=== PATIENT | male | born 1990 | race Caucasian/White ===

== ENCOUNTER 2020-06-16 06:07 | Outpatient (REF) | payer OTHER, SELFPAY ==
[2020-06-16 12:16] LABS: TSH reflex Free T4 2.02 uIU/mL (0.32-4.0)
[2020-06-16 12:17] LABS: Alanine Aminotransferase 41 U/L (0-40); Albumin Level 4.4 g/dL (3.5-5.0); Alkaline Phosphatase 55 U/L (39-117); Anion Gap 17 (12-20); Aspartate Amino Transferase 28 U/L (5-37); Bilirubin Total 0.5 mg/dL (0.0-1.0); Blood Urea Nitrogen 16 mg/dL (9-16); Calcium 9.4 mg/dL (8.4-10.2); Carbon Dioxide 24 mmol/L (22-29); Chloride 102 mmol/L (96-108); Cholesterol 173 mg/dL; Estimated Glomerular Filt Rate > 60; Glucose Fasting 110 mg/dL (60-99); HDL Cholesterol 34 mg/dL; Potassium 4.4 mmol/L (3.3-5.1); Sodium 139 mmol/L (135-145); Total Protein 7.2 g/dL (6.5-8.0)
[2020-06-16 12:24] LABS: LDL Cholesterol Calculated 89 mg/dl; Triglycerides 250 mg/dL
== END 2020-06-16 06:08 | disposition home or self-care (01) ==
LOC: HO.HMGCLDS 06:07
PROVIDERS: PCP Nurse Practitioner Family; Visit Provider Nurse Practitioner Family
DX: E66.9 Obesity, unspecified (principal)
CPT/HCPCS: 36415; 80053; 80061; 84443

== ENCOUNTER 2022-01-29 08:34 | Outpatient (REF) | payer OTHER, SELFPAY ==
--- NOTE | ~2022-01-29 | XR_ITS ---
EXAMINATION: XR KNEE, RIGHT CLINICAL INFORMATION: Sprain of right knee COMPARISON: None TECHNIQUE: Four views of the right knee. FINDINGS: There has been previous ACL repair with postoperative changes noted. Small chondrocalcinosis seen. No osteochondral lesions. No evidence for acute bony fracture or dislocation. Spurring changes of the lateral femoral condyle seen. There is evidence of a suprapatellar effusion. Patellar spurring seen. XR/XR knee RT 4V IMPRESSION: No acute fracture or dislocation. Postoperative changes. Degenerative changes.
== END 2022-01-29 08:35 | disposition home or self-care (01) ==
LOC: HO.HMGCX 08:34
PROVIDERS: PCP Nurse Practitioner Family; Visit Provider Internal Medicine
DX: S83.91XA Sprain of unspecified site of right knee, initial encounter (principal)
CPT/HCPCS: 73564

== ENCOUNTER 2022-06-29 06:14 | Outpatient (REF) | payer OTHER, SELFPAY ==
[2022-06-29 12:43] LABS: Appearance Urine Turbid; Color Urine Yellow; Glucose Urine UA Negative (Negative); Leukocyte Esterase Urine Negative (Negative); Nitrite Urine Negative (Negative); Specific Gravity - Urine 1.025 (1.005-1.025); Urine Blood Negative (Negative); Urine Ketones Negative (Negative); Urine Protein Negative (Neg-Trace)
[2022-06-29 12:50] LABS: MANUAL DIFF FLAG NO
[2022-06-29 12:56] LABS: Basophils Absolute Auto 0.1 X10*3/uL (0.0-0.2); Basophils Percent Auto 0.6 % (0-2); Eosinophils Absolute Auto 0.3 X10*3/uL (0.0-0.4); Eosinophils Percent Auto 3.1 % (0-4); Hematocrit 43.1 % (42.0-52.0); Hemoglobin 14.1 g/dl (14.0-18.0); Imm Gran Abs Auto 0.14 X10*3/uL (0.00-0.03); Imm Gran Pct Auto 1.3 % (0.0-0.4); Lymphocytes Absolute Auto 3.7 X10*3/uL (1.2-4.9); Lymphocytes Percent Auto 34.4 % (20-40); Mean Corpuscular HGB Conc 32.7 g/dl (31.0-36.0); Mean Corpuscular Hemoglobin 27.3 pg (27.0-33.0); Mean Corpuscular Volume 83.4 fL (80.0-98.0); Mean Platelet Volume 9.4 fL (9.4-12.4); Monocytes Absolute Auto 0.9 X10*3/uL (0.1-1.2); Monocytes Percent Auto 8.8 % (2-11); Neutrophils Absolute Auto 5.5 x10*3/uL (2.0-8.3); Neutrophils Percent Auto 51.8 % (45-73); Platelet Count 349 X10*3/uL (160-400); Red Blood Count 5.17 X10*6/uL (4.60-5.80); Red Cell Distribution Width 14.4 % (11.0-16.0); White Blood Count 10.6 X10*3/uL (4.8-10.8)
[2022-06-29 13:38] LABS: Erythrocyte Sedimentation Rate 7 MM/HR (0-15)
[2022-06-29 14:01] LABS: Alanine Aminotransferase 35 U/L (0-40); Albumin Level 4.1 g/dL (3.5-5.0); Alkaline Phosphatase 52 U/L (39-117); Anion Gap 15 (12-20); Aspartate Amino Transferase 25 U/L (5-37); Bilirubin Total 0.5 mg/dL (0.0-1.0); Blood Urea Nitrogen 13 mg/dL (9-16); C Reactive Protein 1.39 mg/dL (< or = 0.50); Carbon Dioxide 23 mmol/L (22-29); Chloride 103 mmol/L (96-108); Cholesterol 182 mg/dL; Estimated Glomerular Filt Rate > 60; Glucose Fasting 124 mg/dL (60-99); HDL Cholesterol 36 mg/dL; LDL Cholesterol Calculated 111 mg/dl; Potassium 4.1 mmol/L (3.3-5.1); Sodium 137 mmol/L (135-145); Total Protein 6.7 g/dL (6.5-8.0); Triglycerides 175 mg/dL
[2022-06-29 14:24] LABS: TSH reflex Free T4 1.55 uIU/mL (0.32-4.0); Vitamin D 25-OH Total 26.7 ng/mL (>30)
== END 2022-06-29 06:15 | disposition home or self-care (01) ==
LOC: HO.HMGCLDS 06:14
PROVIDERS: PCP Nurse Practitioner Family; Visit Provider Nurse Practitioner Family
DX: E66.01 Morbid (severe) obesity due to excess calories (principal); E55.9 Vitamin D deficiency, unspecified
CPT/HCPCS: 36415; 80053; 80061; 81003; 82306; 84443; 85025; 85652; 86140

== ENCOUNTER 2023-01-08 08:41 | Outpatient (AMB) | payer OTHER, SELFPAY ==
[2023-01-08 08:48] VITALS: BP 130/80; PULSE 78; O2SAT 97; BMI 50.1
--- NOTE | 2023-01-08 08:48 | A.OFFPC_ITS ---
Vital Signs 01/08/23 08:48 Height 6 ft 1 in Weight 380 lb 2 oz BMI 50.1 BP 130/80 Blood Pressure Location Lt brachial Position Sitting Pulse 78 Pulse Source Pulse Oximeter Pulse Oximetry (%) 97 Oxygen Delivery Method Room Air Intake Visit Reasons: 4m follow up Allergies Mouthwash Allergy (Unknown, Uncoded 01/08/23 08:50) Anaphylaxis Medication List - Last Reconciled 01/08/23 by JUDITH Barba atenolol 25 mg PO DAILY clotrimazole-betamethasone 1-0.05 % 1 appl topical BID 2 weeks lisinopril 5 mg PO DAILY 90 days Tobacco use date assessed: 01/08/23 Dental Screening Dental Screen Date: 01/08/23 Did you have a dental visit in the last 12 months?: Yes Did you have a dental problem in the last 6 months where you did not have access to dental care?: No Was dental information given to patient?: Patient has dentist HPI 4m follow up HPI Details Pt's fasting blood sugar was noted to be elevated. Will repeat labs. Denies polyuria, polydipsia, and neuropathy. Pt is working on his diet, watching calories and portion sizes. He is actively losing weight. Pt is not interested in bariatric surgery. [facility] Surgical History History of anterior cruciate ligament surgery History of wisdom tooth extraction Family History Father No problems noted. Mother No problems noted. Maternal Grandfather Diabetes mellitus Brother No problems noted. Sister No problems noted. Social History Housing: House Alcohol intake: current Alcohol intake frequency: a few times a week Patient Tobacco Use Status: Never used Tobacco e-Cigarette/Vaping Use: Never Used Second Hand Smoke Exposure: No service: No Current occupational status: employed Current occupation: [employer] Current occupational exposures/hazards: No Cognitive needs: No Hearing needs: No Vision needs: No Questionnaire Thrive Questionnaire Date Thrive assessed: 04/10/22 LING-7 AMB Questionnaire LING-7 Date LING - 7 assessed: 12/27/22 Source: Developed by Drs. Garfield Syed, Erum Cunningham, Javon Moreau and colleagues, with an educational eleonora from [employer]. Review of Systems Const Reports as per HPI Physical exam (Primary Care) Vital Signs: Last Vital Signs Pulse 78 01/08/23 08:48 BP 130/80 01/08/23 08:48 Pulse Ox 97 01/08/23 08:48 Oxygen Delivery Method Room Air 01/08/23 08:48 BMI result Body Mass Index 50.1 Tobacco/Smoking Status: Tobacco use Status Tobacco use date assessed 01/08/23 01/08/23 08:52 Patient Tobacco Use Status Never used Tobacco 01/08/23 08:52 e-Cigarette/Vaping Use Never Used 01/08/23 08:52 Thrive Assessment: Date of Thrive Assessment Date Thrive assessed 04/10/22 01/08/23 08:52 Const General: cooperative Nutritional Appearance: obese morbidly obese Orientation/consciousness: patient oriented x3 Resp Effort & Inspection: normal respiratory effort Auscultation: clear to auscultation bilaterally Cardio Rate: regular rate Rhythm: regular rhythm Heart sounds: S1 normal heart sound present and S2 normal heart sound present Neuro General: patient oriented x3 Psych Appearance: grossly normal Mental Status: mental status grossly normal Speech and movement: Normal speech and movement present Affect: normal affect Attitude: cooperative Thought process: Normal thought process present Thought content: Normal thought content present Insight: Good insight present (Psych) Judgement: Good judgement present (Psych) Assessment and Plan Assessment & Plan (1) Morbid obesity: Code(s): E66.01 - Morbid (severe) obesity due to excess calories Plan: Labs ordered (2) Elevated fasting blood sugar: Code(s): R73.01 - Impaired fasting glucose Plan: Labs ordered Plan The patient agreed to the use of a medical collector for this encounter. Scribed for JUDITH Davidson by Loli Huerta medical collector, on 01/08/2023 at 08:55 EST. Orders: Orders UA CC w/rflx Micro + Cult Today E66.01 - Morbid (severe) obesity due to excess calories, R73.01 - Impaired fasting glucose Complete Blood Count Auto Diff Today E66.01 - Morbid (severe) obesity due to excess calories, R73.01 - Impaired fasting glucose Comprehensive [place]. Panel Fast Today E66.01 - Morbid (severe) obesity due to excess calories, R73.01 - Impaired fasting glucose TSH reflex Free T4 Today E66.01 - Morbid (severe) obesity due to excess calories, R73.01 - Impaired fasting glucose Lipid Panel Today E66.01 - Morbid (severe) obesity due to excess calories, R73.01 - Impaired fasting glucose Coding Level of Care Code Est Pt Level 3 (95474) Diagnoses Morbid obesity E66.01 Elevated fasting blood sugar R73.01
== END 2023-01-08 09:19 | disposition home or self-care (01) ==
PROVIDERS: PCP Nurse Practitioner Family; Visit Provider Nurse Practitioner Family
DX: R73.01 Impaired fasting glucose (principal); E66.01 Morbid (severe) obesity due to excess calories; Z68.43 Body mass index [BMI] 50.0-59.9, adult
CPT/HCPCS: 99213

== ENCOUNTER 2023-06-04 06:02 | Outpatient (REF) | payer OTHER, SELFPAY ==
[2023-06-04 11:18] LABS: MANUAL DIFF FLAG NO
[2023-06-04 11:30] LABS: Appearance Urine Turbid; Color Urine Yellow; Glucose Urine UA Negative (Negative); Leukocyte Esterase Urine Trace (Negative); Nitrite Urine Negative (Negative); UMIC TRIGGER UACC YES; Urine Blood Negative (Negative); Urine Ketones Negative (Negative); Urine Protein Negative (Neg-Trace)
[2023-06-04 11:35] LABS: Bacteria Urine 2+ (None Seen); Hyaline Casts Urine 0-2 /LPF (0-2); RBC Urine 0-2 /HPF (0-2); Squamous Epithelial Cell Urine 0-2 /HPF (0-2); UACC Culture Trigger YES; WBC Urine 21-50 /HPF (0-5)
[2023-06-04 11:39] LABS: Basophils Absolute Auto 0.1 X10*3/uL (0.0-0.2); Basophils Percent Auto 0.5 % (0-2); Eosinophils Absolute Auto 0.3 X10*3/uL (0.0-0.4); Eosinophils Percent Auto 2.8 % (0-4); Hematocrit 44.3 % (42.0-52.0); Hemoglobin 14.3 g/dl (14.0-18.0); Imm Gran Abs Auto 0.04 X10*3/uL (0.00-0.03); Imm Gran Pct Auto 0.4 % (0.0-0.4); Lymphocytes Absolute Auto 3.2 X10*3/uL (1.2-4.9); Mean Corpuscular HGB Conc 32.3 g/dl (31.0-36.0); Mean Corpuscular Hemoglobin 25.8 pg (27.0-33.0); Mean Corpuscular Volume 79.8 fL (80.0-98.0); Mean Platelet Volume 9.2 fL (9.4-12.4); Monocytes Absolute Auto 0.8 X10*3/uL (0.1-1.2); Neutrophils Percent Auto 57.3 % (45-73); Platelet Count 382 X10*3/uL (160-400); Red Blood Count 5.55 X10*6/uL (4.60-5.80); Red Cell Distribution Width 14.3 % (11.0-16.0); White Blood Count 10.4 X10*3/uL (4.8-10.8)
[2023-06-04 12:01] LABS: Alanine Aminotransferase 37 U/L (0-40); Albumin Level 4.3 g/dL (3.5-5.0); Alkaline Phosphatase 60 U/L (39-117); Anion Gap 15 (12-20); Aspartate Amino Transferase 29 U/L (5-37); Bilirubin Total 0.7 mg/dL (0.0-1.0); Blood Urea Nitrogen 15 mg/dL (9-16); Calcium 9.6 mg/dL (8.4-10.2); Carbon Dioxide 25 mmol/L (22-29); Chloride 102 mmol/L (96-108); Cholesterol 181 mg/dL (<200); Estimated Glomerular Filt Rate > 60; Glucose Fasting 101 mg/dL (60-99); HDL Cholesterol 34 mg/dL (>40); LDL Cholesterol Calculated 119 mg/dL (<100); Potassium 3.8 mmol/L (3.3-5.1); Sodium 138 mmol/L (135-145); Total Protein 7.6 g/dL (6.5-8.0); Triglycerides 142 mg/dL (<150)
[2023-06-04 12:05] LABS: TSH reflex Free T4 2.32 uIU/mL (0.32-4.0)
== END 2023-06-04 06:03 | disposition home or self-care (01) ==
LOC: HO.HMGCLDS 06:02
PROVIDERS: PCP Nurse Practitioner Family; Visit Provider Nurse Practitioner Family
DX: E66.01 Morbid (severe) obesity due to excess calories (principal); R73.01 Impaired fasting glucose; R82.90 Unspecified abnormal findings in urine
CPT/HCPCS: 36415; 80053; 80061; 81001; 84443; 85025; 87086; 87088; 87186

== ENCOUNTER 2023-06-05 16:33 | Outpatient (AMB) | payer OTHER, SELFPAY ==
[2023-06-05 16:36] VITALS: BP 132/80; PULSE 82; O2SAT 98; BMI 49.1
--- NOTE | 2023-06-05 16:36 | MHC.PC.OV ---
Vital Signs 06/05/23 16:36 Height 6 ft 1 in Weight 372 lb BMI 49.1 BP 132/80 Blood Pressure Location Rt brachial Position Sitting Pulse 82 Pulse Source Pulse Oximeter Pulse Oximetry (%) 98 Oxygen Delivery Method Room Air Intake Visit Reasons: Physical Exam Intake Note: pt is here for PE, to discuss labs Allergies Mouthwash Allergy (Unknown, Uncoded 06/05/23 16:39) Anaphylaxis Tobacco use date assessed: 06/05/23 Dental Screening Dental Screen Date: 06/05/23 Did you have a dental visit in the last 12 months?: Yes Did you have a dental problem in the last 6 months where you did not have access to dental care?: No Was dental information given to patient?: Patient has dentist HPI Physical Exam HPI Details Pt is here for a PE. Will order labs. Pt is losing weight, eating only organic . + UTI on recent UA, awaiting complete culture and sensitivities. will start pt on keflex, will then repeat urine. pt is asymptomatic. Rest of labs have resulted PFSH Surgical History History of anterior cruciate ligament surgery History of wisdom tooth extraction Family History Father No problems noted. Mother No problems noted. Maternal Grandfather Diabetes mellitus Brother No problems noted. Sister No problems noted. Social History Housing: House Alcohol intake: current Alcohol intake frequency: a few times a week Patient Tobacco Use Status: Never used Tobacco e-Cigarette/Vaping Use: Never Used Second Hand Smoke Exposure: No service: No Current occupational status: employed Current occupation: [employer] Current occupational exposures/hazards: No Cognitive needs: No Hearing needs: No Vision needs: No Questionnaire PHQ-9 Over the last 2 weeks, how often have you been bothered by any of the following problems? 1. Little interest or pleasure in doing things: not at all 2. Feeling down, depressed, or hopeless: not at all 3. Trouble falling or staying asleep, or sleeping too much: not at all 4. Feeling tired or having little energy: not at all 5. Poor appetite or overeating: nearly every day 6. Feeling bad about yourself - or that you are a failure or have let yourself or your family down: not at all 7. Trouble concentrating on things, such as reading the newspaper or watching television: not at all 8. Moving or speaking so slowly that other people could have noticed. Or the opposite - being so fidgety or restless that you have been moving around a lot more than usual: not at all 9. Thoughts that you would be better off or of hurting yourself in some way: not at all Total score: 3 Depression Screening Interpretation: Negative Depression Screening Done: Yes 51839 - PHQ-9 Billing: Yes Source: Developed by Drs. Garfield Syed, Erum Cunningham, Javon Moreau and colleagues, with an educational eleonora from [employer]. Thrive Questionnaire Date Thrive assessed: 06/05/23 I am a: Patient What is your living situation today?: I have a steady place to live Within the past 12 months, did the food you bought not last and you didn't have the money to get more?: Never true Within the past 12 months, did you worry whether your food would run out before you got money to buy more?: Never true Do you have trouble paying for medicines?: No Do you have trouble getting transportation to medical appointments?: No Do you have trouble paying your heating and electricity bill?: No Do you have trouble taking care of your child, family member or friend?: No Do you have trouble with day-to-day activities such as bathing, preparing meals, shopping, managing finances, etc.?: No Are you currently unemployed and looking for a job?: No Are you interested in more education?: No Please select the resources that you would like help with: None Currently or been in a relationship where the following occur: no concerns reported THRIVE Score: 0 AUDIT C Alcohol Use Questionnaire (AUDIT-C) 1. How often do you have a drink containing alcohol?: Monthly or less 2. How many drinks containing alcohol do you have on a typical day when you are drinking?: 3 or 4 3. How often do you have six or more drinks on one occasion?: Never Total Score: 2 Score Reviewed/Action Taken: Yes LING-7 AMB Questionnaire LING-7 Date LING - 7 assessed: 06/05/23 Feeling nervous, anxious, or on edge: 0 = Not at all Not being able to stop or control worryin = Not at all Worrying too much about different things: 0 = Not at all Trouble relaxin = Not at all Being so restless that it is hard to sit still: 0 = Not at all Becoming easily annoyed or irritable: 0 = Not at all Feeling afraid as if something awful might happen: 0 = Not at all Total LING-7 score (0-4 normal; 5-9 mild; 10-14 moderate; 15-21 severe): 0 Source: Developed by Drs. Garfield Syed, Erum Cunningham, Javon Moreau and colleagues, with an educational eleonora from [employer]. LING-7 Assessment Billing LING-7 Assessment Tool: LING-7 Assessment 89684 Review of Systems Const Denies chills and Denies fever(s) Eyes Denies blurry vision ENT Denies vertigo, Denies dizziness and Denies sore throat Card Denies chest pain at rest, Denies chest pain with activity, Denies diaphoresis, Denies dyspnea and Denies dyspnea on exertion Resp Denies cough, Denies dyspnea, Denies dyspnea on exertion and Denies wheezing GI Denies abdominal pain, Denies melena, Denies hematochezia, Denies constipation, Denies diarrhea and Denies loose stools Denies hematuria Musc Denies numbness and Denies tingling Skin/Breast Denies lesions Neuro Denies vertigo, Denies dizziness, Denies numbness and Denies tingling Psych Denies anxiety, Denies depression, Denies homicidal ideation, Denies suicidal ideation and Denies other (substance abuse) Aller/Immun Denies wheezing Physical exam (Primary Care) Vital Signs: Last Vital Signs Pulse 82 06/05/23 16:36 BP 132/80 06/05/23 16:36 Pulse Ox 98 06/05/23 16:36 Oxygen Delivery Method Room Air 06/05/23 16:36 BMI result Body Mass Index 49.1 Tobacco/Smoking Status: Tobacco use Status Tobacco use date assessed 06/05/23 06/05/23 16:42 Patient Tobacco Use Status Never used Tobacco 06/05/23 16:38 e-Cigarette/Vaping Use Never Used 06/05/23 16:38 PHQ-9: PHQ-9 Score PHQ-9: Total score 3 06/05/23 18:37 Depression Screening Interpretation: Negative Thrive Assessment: Date of Thrive Assessment Date Thrive assessed 06/05/23 06/05/23 16:42 Currently or been in a relationship where the following occur: no concerns reported Const General: cooperative Nutritional Appearance: well nourished Orientation/consciousness: patient oriented x3 HENMT Head: Yes normal to inspection, Yes normocephalic and Yes atraumatic Ears: TM's normal bilaterally Eyes General: appearance normal, both eyes and all related structures Alignment and Position: alignment normal and position normal Neck Neck: Yes normal visual inspection and Yes no lymphadenopathy Thyroid: Thyroid normal Resp Effort & Inspection: normal respiratory effort Auscultation: clear to auscultation bilaterally Cardio Rate: regular rate Rhythm: regular rhythm Heart sounds: S1 normal heart sound present, S2 normal heart sound present and no murmurs GI Palpation (GI): Soft to palpation and nontender Auscultation: normal bowel sounds Male General Exam: Yes normal external exam Penis: normal penis Scrotum: scrotum normal, testes descended bilaterally and no inguinal hernias Testes: no testicular mass Skin Rashes: no rashes Neuro General: patient oriented x3, moves all extremities, no focal motor deficits and deep tendon reflexes 2+ bilaterally Romberg Test: Negative Psych Appearance: grossly normal Mental Status: mental status grossly normal Speech and movement: Normal speech and movement present Affect: normal affect Attitude: cooperative Thought process: Normal thought process present Thought content: Normal thought content present Insight: Good insight present (Psych) Judgement: Good judgement present (Psych) Assessment and Plan Assessment & Plan (1) Morbid obesity: Code(s): E66.01 - Morbid (severe) obesity due to excess calories (2) Physical exam: Code(s): Z00.00 - Encounter for general adult medical examination without abnormal findings Plan: labs already results (3) UTI (urinary tract infection): Code(s): N39.0 - Urinary tract infection, site not specified Plan: antibiotic sent, awaiting C+S Coding Level of Care Code Est Pt Prev Care 18-39y(99331) Diagnoses Morbid obesity E66.01 Physical exam Z00.00 UTI (urinary tract infection) N39.0 Additional Codes LING-7 Assessment Billing - LING-7 Assessment Tool: LING-7 Assessment [id number] ([id number])
== END 2023-06-05 17:27 | disposition home or self-care (01) ==
PROVIDERS: PCP Nurse Practitioner Family; Visit Provider Nurse Practitioner Family
DX: Z00.00 Encounter for general adult medical examination without abnormal findings (principal); E66.01 Morbid (severe) obesity due to excess calories; N39.0 Urinary tract infection, site not specified; Z68.42 Body mass index [BMI] 45.0-49.9, adult
CPT/HCPCS: 99395

== ENCOUNTER 2024-07-15 16:03 | Outpatient (AMB) | payer OTHER, SELFPAY ==
[2024-07-15 16:06] VITALS: BP 126/80; PULSE 78; O2SAT 98; BMI 47.9
--- NOTE | 2024-07-15 16:06 | A.OFFPC_ITS ---
Vital Signs 07/15/24 16:06 Height 6 ft 1 in Weight 363 lb BMI 47.9 BP 126/80 Blood Pressure Location Lt brachial Position Sitting Pulse 78 Pulse Source Pulse Oximeter Pulse Oximetry (%) 98 Oxygen Delivery Method Room Air Intake Visit Reasons: ANNUAL PE Intake Note: pt is here for PE, patient is requesting new Cpap machine. Inside Phone Sales Required: No Accompanied by: Self / Same As Patient Allergies Mouthwash Allergy (Unknown, Uncoded 07/15/24 16:47) Anaphylaxis Medication List - Last Reconciled 07/15/24 by En Gibbs, [facility]- atenolol 25 mg PO DAILY clotrimazole-betamethasone 1-0.05 % 1 appl topical BID 2 weeks lisinopril 5 mg PO DAILY 90 days Tobacco use date assessed: 07/15/24 Dental Screening Dental Screen Date: 07/15/24 Did you have a dental visit in the last 12 months?: Yes Did you have a dental problem in the last 6 months where you did not have access to dental care?: No Was dental information given to patient?: Patient has dentist HPI ANNUAL PE HPI Details History of Present Illness The patient is a 33-year-old male presenting for his annual physical examination. His primary health concern is managing morbid obesity, a condition he has been actively addressing through lifestyle changes in the past. The patient is well-versed in weight loss techniques and is currently prioritizing weight reduction due to its implications for his overall health, particularly in light of increased cardiovascular risk factors. Additionally, the patient has a longstanding diagnosis of obstructive sleep apnea, for which he uses a CPAP machine. The device, which has been in use for eight years, continues to provide excellent sleep quality. Furthermore, he suffers from chronic arthritis in both knees, which is being monitored given its contribution to his mobility challenges and increased cardiovascular risk. HTN: stable Health Maintenance - Discussion of weight management focuse d on dietary modifications and lifestyle changes. - Importance of maintaining CPAP machine use for obstructive sleep apnea and scheduling future evaluations for setting accuracy. - Cardiovascular risk reduction emphasiz ed through weight control. Social History - Reports being morbidly obese and activ sera working on weight loss through lifestyle changes. - Utilizes a CPAP machine for obstructiv e sleep apnea. Review of Systems - Cardiovascular: Denies chest pain, óscar rtness of breath. - Gastrointestinal: Denies abdominal kitty n, blood in stool, constipation, diarrhea. - Psychological: Denies suicidal or homi cidal ideations. - Urinary: Denies urinary issues. -denies any fevers or chills Physical Exam General: Cooperative, healthy appearing, comfortable, no acute distress and well developed, morbidly obese Orientation: Patient oriented x3 Limitations: No limitations Head: Normal to inspection Ears: Hearing grossly normal bilaterally Nose: Normal external nose present Face and sinus: Normal facial exam Eyes: Appearance normal, both eyes and all related structures Neck: Normal visual inspection and Yes full ROM Respiratory: Normal respiratory effort and able to speak in complete sentences. Clear to auscultation bilaterally Cardiovascular: Regular rate and rhythm. Normal S1 and S2 GI: Normal to inspection. Soft to palpation and nontender Skin: No rashes or lesions noted Neuro: Patient oriented x3 Extremities: Trace edema to bilateral extremities Results - Labs were ordered for the patient. Plan The plan focuses on managing morbid obesity through weight loss strategies and maintaining current therapies and monitoring for obstructive sleep apnea and bilateral knee arthritis. The patient is expected to follow up regularly to assess weight loss progress and re-evaluate CPAP settings in the future. Discussion Notes I discussed with the patient the importance of focusing on weight management as the main strategy to reduce cardiovascular risk and improve overall health. We reviewed the role of the CPAP machine in managing his obstructive sleep apnea and the need for periodic re-evaluation of its settings. The patient declined surgical options for obesity and knee arthritis, preferring to pursue lifestyle modifications for weight loss. I outlined the potential benefits and challenges associated with these choices and ensured that the patient is informed and agreeable to the current approach. Patient Instructions - Continue working on weight loss throug h dietary and lifestyle changes. - Keep using the CPAP machine every nigh t for sleep apnea. - Schedule follow-up appointments to dodie ck progress on weight loss and re- evaluate CPAP settings as needed, 10 year kurt (approx years from now) - Monitor for any new symptoms or change s in health and seek care as necessary. [facility] Surgical History History of anterior cruciate ligament surgery History of wisdom tooth extraction Family History Father No problems noted. Mother No problems noted. Maternal Grandfather Diabetes mellitus Brother No problems noted. Sister No problems noted. Social History Housing: House Alcohol intake: current Alcohol intake frequency: a few times a week Patient Tobacco Use Status: Never used Tobacco e-Cigarette/Vaping Use: Never Used Second Hand Smoke Exposure: No service: No Current occupational status: employed Current occupation: [employer] Current occupational exposures/hazards: No Cognitive needs: No Hearing needs: No Vision needs: No Questionnaire PHQ-9 Over the last 2 weeks, how often have you been bothered by any of the following problems? 1. Little interest or pleasure in doing things: not at all 2. Feeling down, depressed, or hopeless: not at all 3. Trouble falling or staying asleep, or sleeping too much: not at all 4. Feeling tired or having little energy: not at all 5. Poor appetite or overeating: not at all 6. Feeling bad about yourself - or that you are a failure or have let yourself or your family down: not at all 7. Trouble concentrating on things, such as reading the newspaper or watching television: not at all 8. Moving or speaking so slowly that other people could have noticed. Or the opposite - being so fidgety or restless that you have been moving around a lot more than usual: not at all 9. Thoughts that you would be better off or of hurting yourself in some way: not at all Total score: 0 Depression Screening Interpretation: Negative Depression Screening Done: Yes 18002 - PHQ-9 Billing: Yes Source: Developed by Drs. Garfield Syed, Erum Cunningham, Javon Moreau and colleagues, with an educational eleonora from [employer]. Thrive Questionnaire Date Thrive assessed: 07/15/24 I am a: Patient What is your living situation today?: I have a steady place to live Within the past 12 months, did the food you bought not last and you didn't have the money to get more?: Never true Within the past 12 months, did you worry whether your food would run out before you got money to buy more?: Never true Do you have trouble paying for medicines?: No Do you have trouble getting transportation to medical appointments?: No Do you have trouble paying your heating and electricity bill?: No Do you have trouble taking care of your child, family member or friend?: No Do you have trouble with day-to-day activities such as bathing, preparing meals, shopping, managing finances, etc.?: No Are you currently unemployed and looking for a job?: No Are you interested in more education?: No Please select the resources that you would like help with: None Currently or been in a relationship where the following occur: No concerns reported THRIVE Score: 0 AUDIT C Alcohol Use Questionnaire (AUDIT-C) 1. How often do you have a drink containing alcohol?: Monthly or less 2. How many drinks containing alcohol do you have on a typical day when you are drinking?: 1 or 2 3. How often do you have six or more drinks on one occasion?: Never Total Score: 1 Score Reviewed/Action Taken: Yes LING-7 AMB Questionnaire LING-7 Date LING - 7 assessed: 07/15/24 Feeling nervous, anxious, or on edge: 0 = Not at all Not being able to stop or control worryin = Not at all Worrying too much about different things: 0 = Not at all Trouble relaxin = Not at all Being so restless that it is hard to sit still: 0 = Not at all Becoming easily annoyed or irritable: 0 = Not at all Feeling afraid as if something awful might happen: 0 = Not at all Total LING-7 score (0-4 normal; 5-9 mild; 10-14 moderate; 15-21 severe): 0 Source: Developed by Drs. Garfield Syed, Erum Cunningham, Javon Moreau and colleagues, with an educational eleonora from [employer]. LING-7 Assessment Billing LING-7 Assessment Tool: LING-7 Assessment 15870 Physical exam (Primary Care) Vital Signs: Last Vital Signs Pulse 78 07/15/24 16:06 BP 126/80 07/15/24 16:06 Pulse Ox 98 07/15/24 16:06 Oxygen Delivery Method Room Air 07/15/24 16:06 BMI result Body Mass Index 47.9 Tobacco/Smoking Status: Tobacco use Status Tobacco use date assessed 07/15/24 07/15/24 16:12 Patient Tobacco Use Status Never used Tobacco 07/15/24 16:12 e-Cigarette/Vaping Use Never Used 07/15/24 16:12 PHQ-9: PHQ-9 Score PHQ-9: Total score 0 07/15/24 16:20 Depression Screening Interpretation: Negative Thrive Assessment: Date of Thrive Assessment Date Thrive assessed 07/15/24 07/15/24 16:12 Currently or been in a relationship where the following occur: No concerns reported Coding Level of Care Code Est Pt Prev Care 18-39y(99615) Diagnoses Physical exam Z00.00 Morbid obesity E66.01 HTN (hypertension) I10 Additional Codes LING-7 Assessment Billing - LING-7 Assessment Tool: LING-7 Assessment 84630 ([id number]) PHQ-9 - 50215 - PHQ-9 Billing: Yes ([id number]) Assessment & Plan Assessment & Plan (1) Physical exam: Code(s): Z00.00 - Encounter for general adult medical examination without abnormal findings Category: Medical (2) Morbid obesity: Code(s): E66.01 - Morbid (severe) obesity due to excess calories Category: Medical (3) HTN (hypertension): Code(s): I10 - Essential (primary) hypertension Category: Medical Plan . Orders: Orders Comprehensive [place]. Panel Fast Today Z00.00 - Encounter for general adult medical examination without abnormal findings C Reactive Protein Today E66.01 - Morbid (severe) obesity due to excess calories Complete Blood Count Auto Diff Today Z00.00 - Encounter for general adult medical examination without abnormal findings TSH reflex Free T4 Today Z00.00 - Encounter for general adult medical examination without abnormal findings UA CC w/rflx Micro + Cult Today Z00.00 - Encounter for general adult medical examination without abnormal findings Lipid Panel Today Z00.00 - Encounter for general adult medical examination without abnormal findings Erythrocyte Sedimentation Rate Today E66.01 - Morbid (severe) obesity due to excess calories
--- OUTSIDE RECORDS SUMMARY | 2024-07-15 17:58 | XMS_ITS | Clinical Summary ---
Author Organization [facility] ity Address [address] [place] [address] Care Team Providers Care Electrocardiographic Technician Name Role Phone Unavailable Primary Care Provider Unavailabl e Social History Tobacco Use Types Packs/Day Years Used Date Smoking Tobacco: Never Assessed Sex and Gender Information Value Date Recorded Sex Assigned at Not on file Legal Sex Male 2:02 PM EST Gender Identity Not on file Sexual Orientation Not on file Plan of Treatment Health Maintenance Due Date Last Done Comments DTaP,Tdap,and Td Vaccines (1 - Tdap) 08/13/2007 Hepatitis B Vaccines (1 of 3 - 19+ 3-dose series) 08/13/2007 COVID-19 Vaccine (2023-2 5 season) 2023 Influenza Vaccine (#1) 2023 HIB Vaccines Aged Out No longer eligi ble based on patient's age to complete this topic HPV Vaccines Aged Out No longer eligi ble based on patient's age to complete this topic Hepatitis A Vaccines Aged Out No long er eligible based on patient's age to complete this topic IPV Vaccines Aged Out No longer eligi ble based on patient's age to complete this topic MMR Vaccines Aged Out No longer eligi ble based on patient's age to complete this topic Meningococcal ACWY Vaccine Aged Out N o longer eligible based on patient's age to complete this topic Meningococcal B Vacine Aged Out No lo nger eligible based on patient's age to complete this topic Pneumococcal Vaccine: Pediat rics (0 to 5 Years) and At-Risk Patients (6 to 64 Years) Aged Out No longer eligible b ased on patient's age to complete this topic RSV Immunization Patients Un alexandro 20 months Aged Out No longer eligible b ased on patient's age to complete this topic Varicella Vaccines Aged Out No longer eligible based on patient's age to complete this topic
== END 2024-07-15 17:00 | disposition home or self-care (01) ==
LOC: HO.HMCC 16:04
PROVIDERS: PCP Nurse Practitioner Family; Visit Provider Nurse Practitioner Family
DX: Z00.00 Encounter for general adult medical examination without abnormal findings (principal); E66.01 Morbid (severe) obesity due to excess calories; Z68.42 Body mass index [BMI] 45.0-49.9, adult; I10 Essential (primary) hypertension

== ENCOUNTER → 2024-07-15 16:03 | Outpatient (BNVA) | payer OTHER, SELFPAY | PROVIDERS: PCP Nurse Practitioner Family; Visit Provider Nurse Practitioner Family | DX: Z00.00 Encounter for general adult medical examination without abnormal findings (principal); E66.01 Morbid (severe) obesity due to excess calories; Z68.42 Body mass index [BMI] 45.0-49.9, adult; I10 Essential (primary) hypertension | CPT/HCPCS: 96127 ==